=== PATIENT | female | born 2000 | race Caucasian/White ===

== ENCOUNTER 2025-03-15 19:29 | Emergency (ER) | payer OTHER ==
[~2025-03-15] VITALS: Ht 160 cm; Wt 103.5 kg
[2025-03-15] MEDS ORDERED: PRED20TA PO (20:39)
[2025-03-15] MEDS ORDERED: ONDA-282 PO (20:39)
[2025-03-15] MEDS: ONDANSETRON 4MG ORAL DISINTEGRATING TAB PO ONE (20:43)
[2025-03-15 20:46] VITALS: BP 142/97; TEMP 98.5; O2SAT 96
== END 2025-03-15 20:54 | disposition home or self-care (01) ==
LOC: M ED 19:29
DX: H92.02 Otalgia, left ear (principal); Z79.52 Long term (current) use of systemic steroids; Z79.899 Other long term (current) drug therapy

== ENCOUNTER 2025-04-19 20:04 | Emergency (ER) | payer OTHER ==
[~2025-04-19] VITALS: Ht 160 cm; Wt 103.9 kg
[~2025-04-19 20:04] MED LIST: ONDA-282 PO; PRED20TA PO
[2025-04-19] MEDS: ONDANSETRON 4MG 2ML VIAL IV ONE (20:48)
[2025-04-19] MEDS: KETOROLAC 30 MG/ML 1 ML VIAL IV ONE (20:49)
[2025-04-19 21:08] LABS: BASO # 0.0 10^3/uL (0.0-0.2); BASO % 0.3 % (0.0-1.0); EOS # 0.1 10^3/uL (0.0-0.5); EOS % 1.0 % (0.0-3.0); LYMPH # 4.0 10^3/uL (1.5-5.0); LYMPH % 38.7 % (24.0-44.0); MONO # 0.9 10^3/uL (0.0-0.8); MONO % 8.3 % (2.0-8.0); NEUTROPHILS # 5.4 10^3/uL (1.5-8.5); NEUTROPHILS % 51.5 % (36.0-66.0); PLATELET COUNT, AUTOMATED 487 10^3/uL (150-450)
[2025-04-19 21:25] LABS: CK-MB VALUE MASS < 1.0 NG/ML (<3.6); HCG, SERUM QUALITATIVE NEGATIVE (NEGATIVE)
[2025-04-19 21:27] LABS: CALCIUM LEVEL 9.9 MG/DL (8.5-10.1); CARBON DIOXIDE LEVEL 26 MMOL/L (20-31); CHLORIDE LEVEL 103 MMOL/L (98-107); CREATININE FOR GFR 0.63 MG/DL (0.55-1.30); GLOMERULAR FILTRATION RATE > 90.0 (>60); POTASSIUM SERUM 4.6 MMOL/L (3.5-5.1); SODIUM LEVEL 140 MMOL/L (136-145)
[2025-04-19 21:29] LABS: FREE T4 1.38 NG/DL (0.89-1.76)
[2025-04-19 21:33] LABS: CPK CREATINE PHOSPHOKINASE 74 U/L (34-145)
[2025-04-19] MEDS ORDERED: ISOVUE-370 76% 100 ML VIAL As Ordered ONE (22:04)
[2025-04-19 22:16] LABS: CK-MB VALUE MASS < 1.0 NG/ML (<3.6)
[2025-04-19 22:45] LABS: CPK CREATINE PHOSPHOKINASE 52 U/L (34-145)
[2025-04-19] MEDS: NS (Normal Saline) 0.9% 1,000 ML IV ONE (23:59)
[2025-04-20 01:30] VITALS: BP 110/75
[2025-04-20 01:42] VITALS: TEMP 98.5
[2025-04-20 01:45] VITALS: O2SAT 97
== END 2025-04-20 01:57 | disposition home or self-care (01) ==
LOC: M ED 20:04
DX: R07.9 Chest pain, unspecified (principal); R00.0 Tachycardia, unspecified; F41.9 Anxiety disorder, unspecified; Z79.52 Long term (current) use of systemic steroids; Z79.899 Other long term (current) drug therapy
CPT/HCPCS: 36415; 71045; 71275; 80047; 80048; 82550; 82553; 84439; 84443; 84484; 84703; 85025; 93005; 93041; 94760; 96361; 96374; 96375; 99285; J1885; J2405; Q9967

== ENCOUNTER → 2025-05-01 | Outpatient (CLI) | payer OTHER | LOC: M EKG 10:48 | PROVIDERS: ATTEND Nurse Practitioner Family | DX: R00.0 Tachycardia, unspecified (principal) ==

== ENCOUNTER → 2025-05-26 | Outpatient (REF) | payer OTHER ==
[2025-05-26 16:24] LABS: IRON (FE) 73 UG/DL (50-170)
[2025-05-26 16:25] LABS: CHOLESTEROL LEVEL 238 MG/DL (<200); CHOLESTEROL RISK RATIO 5.56 (<5); LDL CHOLESTEROL 136.8 MG/DL (<100); MAGNESIUM LEVEL 1.9 MG/DL (1.8-2.4); NON-HDL-C 195.2 MG/DL; TRIGLYCERIDES LEVEL 292 MG/DL (<150)
[2025-05-26 16:26] LABS: VITAMIN B12 LEVEL 407 PG/ML (211-911)
[2025-05-26 16:51] LABS: HIV 1&2 SCREEN NEGATIVE (NEGATIVE)
[2025-05-26 16:54] LABS: ESTIMATED AVERAGE GLUCOSE 103.0 MG/DL (60-110)
[2025-05-26 16:58] LABS: HEPATITIS C VIRUS ABY INDEX < 0.02 INDEX (<0.8)
== END ==
LOC: M LAB REF 14:38
PROVIDERS: ATTEND Nurse Practitioner Family
DX: E66.813 Obesity, class 3 (principal); R00.0 Tachycardia, unspecified; Z11.9 Encounter for screening for infectious and parasitic diseases, unspecified